=== PATIENT | female | born 1965 | race Caucasian/White ===

== ENCOUNTER 2023-02-16 08:05 | Outpatient (OUT) | payer BC, SELFPAY ==
--- NOTE | 2023-02-16 08:14 | MM_ITS ---
Patient Name: MARYANN DORADO MR#: [id number] : 1965 Exam Date: 02/16/2023 Ordering Doctor: DR JEREMY PAYNE RADIOLOGY REPORT PROCEDURE: MM TOMOSYNTHESIS SCREENING BI COMPARISON: None. INDICATIONS: Screening Calculator Name NCI Breast Cancer Risk Assessment Tool 5 Year Breast Cancer Risk 1.10% Lifetime Breast Cancer Risk 6.30% Personal Breast Cancer No Personal Ovarian Cancer No Treatments None Family Cancers None LOCATION: [facility] BREAST COMPOSITION: Scattered areas fibroglandular density. FINDINGS: DIAGNOSTIC CATEGORY 1--NEGATIVE. RIGHT BREAST: No significant suspicious finding. LEFT BREAST: No significant suspicious finding. RECOMMENDATIONS: ROUTINE MAMMOGRAM AND CLINICAL EVALUATION IN 12 MONTHS. PLEASE NOTE: A NORMAL MAMMOGRAM DOES NOT EXCLUDE THE POSSIBILITY OF BREAST CANCER. A CLINICALLY SUSPICIOUS PALPABLE LUMP SHOULD BE BIOPSIED. Dictated by: Isaias Ponce M.D. on 02/16/2023 at 14:21 Approved by: Isaias Ponce M.D. on 02/16/2023 at 14:23
== END 2023-02-16 08:06 | disposition home or self-care (01) ==
LOC: MAMMO 08:05
PROVIDERS: PCP Nurse Practitioner Family; Visit Provider Nurse Practitioner Family
DX: Z12.31 Encounter for screening mammogram for malignant neoplasm of breast (principal)
CPT/HCPCS: 77063; 77067

== ENCOUNTER 2023-07-04 11:45 | Emergency (ER) | payer BC, SELFPAY ==
[2023-07-04] VITALS (8 sets, daily range): BP systolic 158–213; BP diastolic 104–134; PULSE 68–69; O2SAT 98–100; BMI 37.8
--- NOTE | 2023-07-04 12:33 | ECG_ITS ---
[facility] Test Date: 2023-07-04 Pat Name: MARYANN DORADO Department: Room: - Gender: Female Guide Excursion: : 1965 Requested By: [id number] Order Number: [id number] Reading MD: ZARINA URBAN Measurements Intervals [place] Rate: 69 P: 54 CO: 164 QRS: -23 QRSD: 78 T: -8 QT: 372 QTc: 391 Interpretive Statements 1100 Sinus rhythm 7202 Moderate left axis deviation Nonspecific ST/T wave changes 9110 normal ECG No previous ECG available for comparison Electronically Signed On 07-04-2023 22:59:52 EDT by ZARINA URBAN
[2023-07-04 12:44] LABS: Basophils Percent Auto 0.3 % (0.2-2.0); Eosinophils Absolute Auto 0.1 10^3/uL (0.0-0.7); Eosinophils Percent Auto 1.1 % (0.9-7.0); Hematocrit 42.5 % (36.0-48.0); Hemoglobin 13.9 g/dL (12.0-16.0); Immature Granulocytes Abs Auto 0.02 10^3/uL (0.00-0.03); Immature Granulocytes Pct Auto 0.3 % (0.0-0.5); Lymphocytes Absolute Auto 1.6 10^3/uL (1.2-3.8); Lymphocytes Percent Auto 21.3 % (20.5-60.0); Mean Corpuscular HGB Conc 32.7 g/dL (29.9-35.2); Mean Corpuscular Hemoglobin 29.7 pg (26.7-34.0); Mean Corpuscular Volume 90.8 fL (81.0-99.0); Mean Platelet Volume 9.1 fL (9.5-13.5); Monocytes Absolute Auto 0.5 10^3/uL (0.3-0.8); Monocytes Percent Auto 6.2 % (1.7-12.0); Neutrophils Absolute Auto 5.1 10^3/uL (1.4-6.5); Neutrophils Percent Auto 70.8 % (43.0-75.0); Platelet Count 273 10^3/uL (150-450); Red Blood Count 4.68 10^6/uL (4.20-5.40); Red Cell Distribution Width 12.5 % (11.0-15.0); White Blood Count 7.3 10^3/uL (4.0-11.0)
[2023-07-04 12:58] LABS: Alanine Aminotransferase 21 U/L (14-59); Albumin Level 3.9 g/dL (3.4-5.0); Alkaline Phosphatase 77 U/L (46-116); Anion Gap 14.3; Aspartate Amino Transferase 15 U/L (15-37); BUN Creatinine Ratio 28.9; Bilirubin Total 1.3 mg/dL (0.2-1.0); Carbon Dioxide 27.9 mmol/L (21.0-32.0); Chloride 103 mmol/L (98-107); Estimated GFR (African America >60 (>=60); Estimated GFR (Non-African Ame >60 (>=60); Globulin 3.8 g/dL; Glucose 111 mg/dL (74-106); Potassium 4.2 mmol/L (3.5-5.1); Sodium 141 mmol/L (136-145); Total Protein 7.7 g/dL (6.4-8.2)
[2023-07-04] MEDS: CLONIDINE HCL 0.1 MG TABLET 0.100000000000000006 MG PO (13:00)
[2023-07-04 13:01] LABS: Ethanol <3 mg/dL; Troponin I High Sensitivity 23.1 pg/mL (4.0-51.3)
[2023-07-04 13:02] LABS: Acetaminophen <2.0 ug/mL (10.0-30.0); Salicylate <2.8 mg/dL (<=19.9)
[2023-07-04 13:09] LABS: Bilirubin Urine NEGATIVE (NEGATIVE); Blood Urine SMALL (NEGATIVE); Clarity Urine CLEAR (CLEAR); Color Urine LT. YELLOW (YELLOW); Glucose Urine UA NEGATIVE (NEGATIVE); Ketones Urine NEGATIVE (NEGATIVE); Leukocyte Esterase Urine NEGATIVE (NEGATIVE); Nitrite Urine POSITIVE (NEGATIVE); Protein Urine NEGATIVE (NEG/TRACE); Specific Gravity Urine 1.015 (1.005-1.025); Urobilinogen Urine 0.2 EU/dL (0.2-1.0)
[2023-07-04 13:14] LABS: Urine Microscopic Indicated YES
[2023-07-04 13:24] LABS: Bacteria Urine SMALL #/HPF (NONE SEEN); Cast Seen? NONE SEEN #/LPF (NONE SEEN); Crystals Seen? None Seen #/HPF (None Seen); Mucus Urine TRACE (NONE SEEN); Squamous Epithelial Cell Urine RARE #/LPF (NONE/RARE); Urine Culture Indicated YES; WBC Urine 0-2 #/HPF (NONE SEEN)
[2023-07-04 13:25] LABS: Amphetamine Screen Urine NEGATIVE (NEGATIVE); Barbiturates Screen Urine NEGATIVE (NEGATIVE); Benzodiazepines Screen Urine NEGATIVE (NEGATIVE); Buprenorphine Screen Urine NEGATIVE (NEGATIVE); Cannabinoid Screen Urine NEGATIVE (NEGATIVE); Cocaine Screen Urine NEGATIVE (NEGATIVE); Methadone Screen Urine NEGATIVE (NEGATIVE); Methamphetamines Screen Urine NEGATIVE (NEGATIVE); Opiate Screen Urine NEGATIVE (NEGATIVE); Oxycodone Screen Urine NEGATIVE (NEGATIVE); Phencyclidine Screen Urine NEGATIVE (NEGATIVE); Tricyclic Antidepressant Urine NEGATIVE (NEGATIVE)
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
== END 2023-07-04 16:57 | disposition home or self-care (01) ==
PROVIDERS: Emergency Provider Emergency Medicine; PCP Nurse Practitioner Family
DX: I16.0 Hypertensive urgency (principal); F43.9 Reaction to severe stress, unspecified
CPT/HCPCS: 36415; 80053; 80179; 80307; 80320; 80329; 81001; 84484; 85025; 87086; 87150; 87186; 93005; 99285

== ENCOUNTER 2024-05-17 03:04 | Emergency (ER) | payer SELFPAY ==
[2024-05-17 03:12] VITALS: BP 154/90; PULSE 89; TEMP 36.9; O2SAT 99; BMI 31.3
--- OUTSIDE RECORDS SUMMARY | 2024-05-17 03:12 | XMS_ITS | CCD ---
Author Organization [facility] Care Team Providers Care Analyzer Sales Name Role Phone HOUSE, DR MATSON Consulting Unavailable HOUSE, DR MATSON Attending Unavailable HOUSE, DR MATSON Admitting Unavailable KyraKulwinder ruiz Attending Unavailab le KyraKulwinder betts Admitting Unavailab le NON STAFF Primary Care Unavailable HOUSE, HUYEN Gustafson Primary Care Unavailable HOUSE, DO HUYEN Gustafson Attending Unavailable HOUSE, DO HUYEN Gustafson Admitting Unavailable HOUSE, HUYEN Gustafson Primary Care Unavailable HOUSE, DO HUYEN Gustafson Attending Unavailable HOUSE, DO HUYEN Gustafson Admitting Unavailable HOUSE, HUYEN Gustafson Primary Care Unavailable HOUSE, DO HUYEN Gustafson Attending Unavailable Allergies Allergy Classification Reported Allergen(s) Allergy Type Date of Onset Reaction(s) Facility (1 source) Penicillin; Translations: [penicillin] Drug Allergy [facility] Repository Problems Problem Classification Problem Date Documented Da te Episodic/Chronic Essential hypertension (4 sources) Essential (primary) hypertension; Translations: [ESSENTIAL PRIMARY HYPERTENSION] Onset: 04-02-2022 Chronic Results Test Name Value Interpretation Reference Range Facil ity Coding Summaryon 05-02-2024 [facility] ZpznqnkmGKs0wHa+PGh lYWQ+LT1VWKXuL00gtC AlaB8oK0KMTCtFHpimC IKHLWkZDyKqdtHhFZ3v aXNjZXJu IC8+VZ6rKLOzLsoomBA vs4E9yTU8B86vix3rCA ujoCJ4KFMiToBgaxyfs 5amtEq1CNvxIxwjVtWc QKWomG98YSD3nM57Ba6 1gCBfrNYre5kajYk9Rq DvAQQzGDF4rWynYQsyu 1LdAOOlY86vxHGvx3P9 IGNvbGxhcHNlOyBlbXB 1uR8qHWhnlwtme1wigj pxHlz4ia13eNFrw6X3p HA9I6ShxyX2AJNrtMEs VyynkUFZyK2cuqgmg5k hazpuXyNiOFOaGWl4MJ l6DVVhyOqdXuCnQT23G EC0VNOgkvMdZ7UrSKZu aYlzJjG2h7T3Mj0OA3G AAllrA3ZPYWHHYGdcwM Q+LT21nh79R6ObSwpgW tr8NBKlCAF1rPK0vZ2e OESyCGgiy6V0fNA7F1A mluIizx2sm3lrMUEcBW ljV44ddHEqu6S5ZWSkv VB2PUUwuWejFdZvaX40 Oyc+BNFicGfzd8SsVvx yn0rky2cndUc8ZqzdLE PtjcZieVdyZLR5g0PoU x4nGWJinVM9hTA2yY2j NaVaEhL4VXssW609GfX xyHJaEgjiN15xU6StgX A+KJKqNij8IWGncMktE G4fQ8QaPJNsxlesjSEj yTnkZF2oEUMdzntlNRD eeP6qFIYsX7n4LtBhNi E6TWtdW4JfAHVqranmH e56jN1bRrKzBaS4WMqd F4EnrjW6KUNgeMGvVDy rXUZ5X06bi0D8DTWhAF WjKPI1yRI1xC6lzTvfi jogbGVmdDsgdmVydGlj HYfyWEukK663DJKbwAw nPkNvZGluZyBEYXRlOi AgMDIvMjYvMjAyNTwvd GQ+TPWvHYP6oPqhUXQq cONwOPytZj5ojBfxkNj rTT2wSEXvgcsoMJKudI 9pHYDdnVVncHqeHC5hG AYwuktya256HcNkCKM5 OLHojLJeL4UpqR4iIqE lQVMhZJXaR8KpqWRhRL feH497HHfhUtX0CXVkw mTnV5NtYAIcyInkDhR7 c2D0Go2Wa0JlhiunH6B pbZJeXgYhKtdoHKt2A0 RkPjwvdHI+PA33ZBMdP V38SNi4CQX3jZroHCoe MESmV4BswC2cAoChXUS kZGRkOyc+PHRhYmxlIH dpZHRoPScxMDAlJyBzd ArpWK3nBi6aQZAjYKVm gSlkvHVoWeKnm5vxFMN nEFimNX2qyTtiM8GamO A5NJKyu0x5Lj13F27rA 3JvdXA+SHFxiSH0nIW1 xL3sFoRvDiM8AQfiZ52 2IhDigWUrMwuec8ijm8 nltNz0AoW7HIHicgYwp EaoNXB2v1FoVs50H60g IHdpZHRoPSIxNSUiIHZ yhZuhcf6myZ8rFt3+PG XnbML1rCE5kT5xFqByO eS0EAqbV006BjEpuTZo Mcqvg8frv5ibaPk3SrF iWRJxuuYiqTamCBA0m3 FjIn32Y2FsbGdkn9TvE xy6yr91nWGjt4W1mXH2 M7GeLYFeyzsarRCopIl pKI0gBIJyzovjNBRwxS 0uCLXpZ4f1CkIqGrR4H BlwI8PckuF3ESNatFSd VLDenRJJjD8affzvm6s ylfxeNtIrLLAgKQy0XQ x1LSXcjHgcAaSkPCF3V kE5GTA0zAChoR3rcDqz jpuzmY7xWvy+RMZ6nYE bfGXBCW3dQweazNZ+PH EuJCL2qGufMWnkKTCjr K8cRXAuT1f7GwRnFdT3 TWpfZ7DabsO4NHApcCQ oEVAyoWTNeV8avkzhs0 wjatsnPfCzHNZkZEj5F Vj4MXHulCbrDpSmAAM6 MzV9JID8gFCpkE3dePn utkrwrE9rLfh+QmlydG noWJG2BIl3P1AtTlc9V JCtnWfcCO7onYDwXYrv Aq5ayDzbeWprKF4ePFP lrnjaz875QvRct1yqOE YzmXYdNGqzCUN4D78cg 8O4VOAiXRZtPRH1kVW7 uI1axLxfhfepjWQcrPu gdmVydGljYWwtYWxpZ2 08NFAtjFcjTgDbKSu7F 1BeWuk0KWVfvUyzCR7p eIGcCUlvPz4jlZigeAl wGF3dUMSobbacz482Ia Igy4prZPRkbCVvEXqdE VA4I83te3F5DINsFEUn VFO9mRL6cM2qrUrybqn gbGVmdDsgdmVydGljYW jbHWjuU516ZMFnqYytM jWfvYk9V1OlUmr2UCOo jXsdGO7kyHVvRMisRn0 aaWleoWyqXG1wBPRiws bml711DiEra7fjRURfx CCgJUjtDOR7Z27mk1Y4 OFZwXBAxKQU7sSL6wH5 hbGlnbjogbGVmdDsgdm MfnDvuDTpaGAyxZ152A HRvcDsnPlBhdGllbnQg CJtbLNc0Q5DdBcvyaLJ +LS43GROqER23qETxwI Xns1gdvMb0FxMnZBEdX DS9gBwhBAcge2PyGSBz G31dwVIbq6C2ZIUgoDc aiALtFwJuoIL2wV2mRX affcuem8iqojnzKsnex 0rpvp04cW75K49nWMwe ZHRoPSIzMCUiIHZhbGl udi1stT8lVg2+PGNvbC D0lKO4zN1jPUXzSsU9F XrmP885WeTvwFAjUplc p2utv2uomNa3EnM8FQF szkUnsKojQMM1f6QsZe 22V31iMFtkTGDcUKZyX UCqWGWskSedsl1aaY8w Ii8+FLEtpQJ6bRW7uE6 iScJcTwF9MQldX510Vx AfeNHlTvmoA51aW8Wrz XA+CQEiPxq3OEAgfXle SY0wbIClZMplWz2zZDD 2NiGgWfPgMUqjV6CjYB EgbfowoeklsCS3RMMjB PTzqV78Rz9loCuvIJWk yCXOlP3kwhwth4xkfdg eKuPfVCWxIZc3UZq4MU WfuZxcFqLbQTM7MrK8M EJ5tUZquM3bxQxbeuoj eD8oZ6KqGPAnybgkHq5 8bI7hWfWyYaS8VOnlYh c+OT5YT9zsWYUNHl5EI RHWBN7ZWIrtlWP+PHRk NEB4cTajXHyvWIPyrM8 pHHNrQ4o8ClCnFvT6LA nrI1OjBSQjaffoWn69j P9oDoHcXzE0QXpoH3Ot mzM3IFIqiDQbTLqeTWU 1Y65ny9R3ALLqZIOuHL Y4wVG2nX2dnHygdwcqv GVmdDsgdmVydGljYWwt KPqzO617CFHwuVckOiZ 4OdA2SqJ0LlG8O1SpHh w4LAEkkCpjFY2qnKSjF RkcFn9iqSyqzFngYE7n DXDkwptcPVZusY3dFLB miJPwuRzbJF6kNXCsoi fng248WwQcYBD7UXKdy NVdR0ZcmQ0mKuRuTDKo ZJKqF1ZajJRgZFgaB54 1DDjrHtO2KUUneuGyV7 QeYMZdvJybEeJ8b3F6O e34QWTNXXRbwsgrnLH+ RTSoHKU1qUofNCzjPPM suM7sAQAbM9g8UcKbQp O9JCvuT1KmWXOhjhjtZ y02sN9sSjAiXcU0TJqm A8NachW1KOAqyKUyBGv fBII0U59gx2R7OHPvAC SsDRB3sIQ7vA4viDppl jogbGVmdDsgdmVydGlj JHfoDPcoR723TUHhkDp nPkZFTUFMRTwvdGQ+PH NmHWF0uPhgOVsvGUOef S0kUFJnX8w9YsDmKdF0 QScaB1JjLTSyqqqvDc7 2wG1zBfWvVgC6VNktN3 XbtdP9VTMirYUvZKooO AU7R08bw3Q8RKXuQTZe UIW8fEW2nT7bfNmllsd gbGVmdDsgdmVydGljYW ufWBgfY164TFBncAdmN w3COR36FZ89J3FuCwhr dGFibGU+PHRhYmxlIHd pZHRoPScxMDAlJyBzdH qhXJ2tIb5mZSWbZZTkz QkriHJuHrBot2cjIPOc HOxpDG1hoDuzZ4FapPR 8STCkw7h6Rj41T60lT8 JvdXA+ULBnhLO4hMZ1n L3oQdKbZyV0BPajS694 UnDopXRxNiiem6gvv1t xbXb2WjMvYVHwitAcoY dzGFD3h9YdJy30A04yX HdpZHRoPSIyMCUiIHZh tHinga5vfM5sIz3+PGN twWD1nFP9xL3dBcZnJr X8ZVsbI922YoXukEJcR tdkH45wZ1VblTZ+PHRy Ioe9GNZyzGisAY8ckRE uFKeyLf1sYPP8SzDjQh LaURkjC3ZvTCRqorkva dkzdNW5XTIuKVPkbH99 Ty0wvBxqCj9aZKVoRJC 6IYPnuLPgT3MebN1rWw ZxHSHzZDCaT0JlkIBeM AgbZ015LZjqJgU5HTYo vmIbR6XaUNGesFjoXrM 2a6P3Iy4IoCkquYKdUQ 5wAuIrSKn7N0IrOvg8Z FKfwZtlIQ0kaNJtSDqf Sw0wxFbeiXhjCZ7zCFZ yahang564KoLuf4udCP SmnKPiSIxuWNY5R77rh 9F0QTCpWRIaAYZ8lNN5 vG8paOpylycidPGevPr gdmVydGljYWwtYWxpZ2 31CNPogCfrWdTORra5T 5UpHsr7JZHipQdrUD5l eNQqKObhXw6zgLzrxOv xGN2xQBUfcxxln708Md Mfu6heHBQlxREoMGowB FW3I28ea4H7CRGgMBXv UWP9vBI5wG0kgWiitho gbGVmdDsgdmVydGljYW spXIcdQ501VVFttFguO h3GEpr3V2JaQmm8RYVf xPnuSU9aaCOePGgwAl6 ejQkryQraEC2eGSEicw rlx192CaKeh6qfNETjw CLpQBfcPED5I36ul8V6 NQTfPZMkWND4gVY2sO6 hbGlnbjogbGVmdDsgdm PwqFdoXSbzRSgtL532D HRvcDsnPlBheWVyOjwv dGQ+FV58ib92N4PnZeg cEtf2ILIqLZU7lTH6wI 5lVHTxTCkxr6L4zEY7V 9HqagUuzn5ze1xlNGRj ZTo (more content not included)... Normal [facility] Reminder Messageson 05-01-19 Reminder Messages -- From: HUYEN OATES DO To: [facility] Clinical Pool ([facility]); Sent: 04/30/2024 07:53:04 EST ! Show up: 04/30/2024 07:53:04 EST Subject: Results Follow Up Actions: Call the patient with result(s) Due Date/Time: 05/01/2024 07:52:00 EST Reminder Comments: looks okay Results: Date Result Name Ind Value Ref Range 04/26/2024 11:43 UA Color Yellow 04/26/2024 11:43 UA Clarity CLEAR (CLEAR - ) 04/26/2024 11:43 UA Glucose NEGATIVE 04/26/2024 11:43 UA Ketones NEGATIVE 04/26/2024 11:43 UA Spec Grav 1.010 (1.001 - 1.035) 04/26/2024 11:43 UA Blood (A) TRACE (NEGATIVE - ) 04/26/2024 11:43 UA pH 6.0 (5 - 8) 04/26/2024 11:43 UA Protein NEGATIVE (NEGATIVE - ) 04/26/2024 11:43 UA Urobilinogen 0.2 mg/dL (0.2 - 1.0) 04/26/2024 11:43 UA Nitrite NEGATIVE (NEGATIVE - ) 04/26/2024 11:43 UA Leuk Est NEGATIVE (NEGATIVE - ) 04/26/2024 11:43 UA Bilirubin NEGATIVE 04/26/2024 11:43 Urine Source Clean Catch 04/26/2024 11:43 Micro? Indicated 04/26/2024 11:43 Culture? Not Indicated 04/26/2024 11:43 UA WBC 0-2 04/26/2024 11:43 UA RBC 5-10 04/26/2024 11:43 UA Squam Epi Rare 04/26/2024 11:43 UA Bacteria Trace lvm with results [facility] UA Zxbyw2mm 04-26-2024 UA Bacteria Trace [facility] Comment on above: Order Comment: Urina lysis Microscopic order added on by [employer] Expert Rules system. Performed By: #### 1 [id number], [id number], [id number], [id number] #### [facility] (DEFAULT) [address] [place] [address] UA RBC 5-10 Normal [facility] Comment on above: Order Comment: Urina lysis Microscopic order added on by [employer] Expert Rules system. Performed By: #### 1 [id number], [id number], [id number], [id number] #### [facility] (DEFAULT) [address] [place] [address] UA Squam Epi Rare [facility] Comment on above: Order Comment: Urina lysis Microscopic order added on by [employer] Expert Rules system. Performed By: #### 1 [id number], [id number], [id number], [id number] #### [facility] (DEFAULT) [address] [place] [address] UA WBC 0-2 [facility] Comment on above: Order Comment: Urina lysis Microscopic order added on by [employer] Rules system. Performed By: #### 1 [id number], [id number], [id number], [id number], [id number] #### [facility] (DEFAULT) [address] [place] [address] UA w Culture if Ind Standard on 04-26-2024 Breakpoint UA [facility] Comment on above: Performed By: #### 1 [id number], [id number], [id number], [id number], [id number] #### [facility] (DEFAULT) [address] [place] [address] Color (U) Yellow [facility] Comment on above: Performed By: #### 1 [id number], [id number], [id number], [id number], [id number] #### [facility] (DEFAULT) [address] [place] [address] Culture? Not Indicated Invalid Interpretation Code [facility] Comment on above: Result Comment: Resu lt created by rule GL_MAGR_ADD_UA_CULT Result created by rule GL_MAGR_ADD_UA_CULT Performed By: #### 1 [id number], [id number], [id number], [id number], [id number] #### [facility] (DEFAULT) [address] [place] [address] Glucose (U) [Mass/Vol] Negative [facility] Comment on above: Performed By: #### 1 [id number], [id number], [id number], [id number], [id number] #### [facility] (DEFAULT) [address] [place] [address] Ketones Ql (U) Negative [facility] Comment on above: Performed By: #### 1 [id number], [id number], [id number], [id number], [id number] #### [facility] (DEFAULT) [address] [place] [address] Micro? Indicated Invalid Interpretation Code [facility] Comment on above: Result Comment: Resu lt created by rule GL_MAGR_ADD_UA_MICRO Performed By: #### 1 [id number], [id number], [id number], [id number], [id number] #### [facility] (DEFAULT) [address] [place] [address] UA Bilirubin Negative Normal [facility] Comment on above: Performed By: #### 1 [id number], [id number], [id number], [id number], [id number] #### [facility] (DEFAULT) [address] [place] [address] 269[address] UA Blood TRACE Abnormal NEGATIVE [facility] Comment on above: Performed By: #### 1 [id number], [id number], [id number], [id number], [id number] #### [facility] (DEFAULT) [address] [place] [address] UA Clarity CLEAR Normal CLEAR [facility] Comment on above: Performed By: #### 1 [id number], [id number], [id number], [id number], [id number] #### [facility] (DEFAULT) [address] [place] [address]22 UA Leuk Est Negative Normal NEGATIVE [facility] Comment on above: Performed By: #### 1 [id number], [id number], 98040893, [id number], 9905864 #### [facility] (DEFAULT) [address] [place] [address] UA Nitrite Negative Normal NEGATIVE [facility] Comment on above: Performed By: #### 1 [id number], [id number], 35454210, 47509931, 7573509 #### [facility] (DEFAULT) [address] [place] [address]006 UA pH 6.0 Normal 5-8 [facility] Comment on above: Performed By: #### 1 [id number], [id number], [id number], 92686676, [id number] #### [facility] (DEFAULT) [address] [place] [address] UA Protein Negative Normal NEGATIVE [facility] Comment on above: Performed By: #### 1 [id number], [id number], 06443079, 45648264, 0132512 #### [facility] (DEFAULT) [address] [place] [address]69 UA Spec Grav 1.010 Normal 1.001-1.035 [facility] Comment on above: Performed By: #### 1 [id number], [id number], 05056191, 38531911, 9114611 #### [facility] (DEFAULT) [address] [place] [address] 97643 UA Urobilinogen 0.2 mg/dL Normal 0.2-1.0 [facility] Comment on above: Performed By: #### 1 [id number], [id number], 35111259, 78914980, 6093042 #### [facility] (DEFAULT) [address] [place] [address] 90267 Urine Source Clean Catch Normal [facility] Comment on above: Performed By: #### 1 [id number], [id number], [id number], [id number], [id number] #### [facility] (DEFAULT) [address] [place] [address] Coding Summaryon 04-19-2024 Coding [facility] XqnemhqpOIq1xWl+PGh lYWQ+CJ5CJCYnV31vaT XccL1sL9BGZWvJViuuU RSZXCnEKtXacxTnBX4x aXNjZXJu IC8+ZR2gDRUoOoxfvKK ov0C4bOL4Z29aer0mIV hduSQ0ZCWeChCqfzqjj 4drbLe7GJvbSueyQuUf AYIygF36FHP8nM96Fp7 7cQAldMKvz7ugoQw9Cs BqUFAuVHO5lDymEUrim 0QoAZFpV71msNEjy5C8 IGNvbGxhcHNlOyBlbXB 4tS9iGHlgxyqji1ovtt eyGsk5pu29oSQik3Z0s WF2G0AlkqS0FNZanLRt CmbabOXPkH0zcoyjc8a wpmriSgPuTXSaBIw3JJ k6DGYpdZtpDpBdNZ82I RY3RZLmcuZeS6LfCOUk aMpdJcJ7d8Z8Hr0LW1L JKhdoS8JJAMAFEEonhH Q+QT09sk50A1AsJesgD on3HOAaTWI0jJC1eY1y UINiAMlbq0Y3gWN0T7D pgrUzvy2lp6nhDWOdCP ghU91vbWJzy7E7WCDyk HP7QVVvhYehTwSkiD08 Oyc+DYWenDdgh3PaHdh yr4xjp4etzDr7CcqfPO IaomRcxVwnJEG2r1YeK q3sGGVilIZ2oGX2wL3s NkLrRlM6XFrlQ736SvP mcCMnVnrfS88uU9GdqY A+IHVgDmb2NPRvjXqhS F8cI7JsRSHlguiqhBFr sAfhHG8zNRVmkgreHXE olL3kYHUpV3k5NxEjSf F2CGvuB7XsCQGiefarH d51uC0vIrXoAhU6VHtd L7CkulK7ZALpyOWrFIk hXVL6E11xp6J8SZAdHN OuROM7mPH1kS7tgGsgm jogbGVmdDsgdmVydGlj LUsqSApiX743CBYrzMu nPkNvZGluZyBEYXRlOi AgMDIvMTMvMjAyNTwvd GQ+NVFlXUI3vVqcCWNo hFOkUIbbVp1xpYyocZz kEO4bCZOsjtopEYXdkA 4mCJMayCZriEkdQO6lA DRerrtxw878IhOxMSU1 ZAXubQBfP3WplR1tZlA cIFCzFSCgZ8PzuXLcDC tlH819WMxpLkM8GPWjl nLnI4HzSEVobIduLtW5 a5W4Gx4Et1LrnbwwL7P ucKFgXdUvUwbpYZn9N4 RkPjwvdHI+WG32XXVcN P23DCm3IDA5bTxtFGzz WEGyS4KezD9dYtBqQXH kZGRkOyc+PHRhYmxlIH dpZHRoPScxMDAlJyBzd ZypAV8aOy9pSCYgZEAr aEbywRTwJzIpz4pqNUI tGNakPA7bzMprR7ZqlD Z4ODMhq6o8Vg77G57kG 3JvdXA+TZQwxGP3iIQ9 uS1fGyWiWmY7PZfgR84 5MhOttERfCdkbn6wde1 gcdKd8SeX4IFPnfwMmc XeaNTC7o2FqTk62T40w IHdpZHRoPSIxNSUiIHZ lmJbxew1ewT2vQt6+PG TvdSU1pOB7nS9vGtCrL mF6FLwmA492LmNbeDNn Qsliz4qtr4cayJr2KjV fQBHqfzXfkNuoTFZ0l4 JdIr01B7UktUlya8PfM jb9by78aAYiy7C1bAM6 P2QeAERyhpckpMIopLj sEG4hVKXzglvfBWHmoA 4xCNPpZ7z8NtSxIbU9Q XalA1BzchE6REIusDBq QWOixNSJdE7iwdinq7d msjptRpWrRCDjYFx8HP q1BUSmrJapAmKgQUG1J tY5MXC9hWIjyD7ykHyu jyuqkL0pJps+BOO4vFJ bjGSGIG7aIaldqJE+PH EyJQI2kHqgHMswCYLxo X8eUPGaP8d9LnIlItU8 HZxsN2VfggD7AZXlbRN oFSAgcTUGsV8apkhqp1 xcygzrPvYmASAyGSz2Q Jp6NSNflHjaQxDkEXH1 ChU2ODS1bXTenF6ykKr zgsyafH0dUzl+QmlydG gqNSE0VFx7N0EtDii9Q BEyoFwnQB2msGVeYEgb Cf2msIxagFanVJ1uJUO avhcyz086QpYnf3yaKM YeqTNtWDazBKQ7D13nt 2U3HEPyRHMxXFZ7yQR8 xP2skNixyztgiRRoyZl gdmVydGljYWwtYWxpZ2 99MPVyhCwzClGjBMe5L 1CeIvg3AFJutOkeUP4c dLShJUtpDe7msRxxvOr iZR8kAWKwvyngm943Zd Ukg9phMFDvrQMxGPnbI AE4Z75je6T0HKGvPIGf FXZ5lTK7eH1ypVlhies gbGVmdDsgdmVydGljYW tjPDhxL191UPTecIdjP uCuaWu8Q3UzGwc7NGHl hXqwTS5yeQQcXVdoPk7 bnOvbbHlsEC4hGHKsxt tzg931MhTpz3mbMEInt TOlXTnjJCX0N37ir5T0 CBHoWPBjIOR8pEZ7jP9 hbGlnbjogbGVmdDsgdm ErpPntBFwwGWuiM702C HRvcDsnPlBhdGllbnQg NTqgWPm5O2AqPniilIA +BL49PTYwFR86qEAriO Srm6eibFd5BgErGPGtT WW3rMgsNOtix0GlBVEm B31iyFWlm3H9JEEmdYw wzVOeGjMckZH4dV0tJZ nfmpnvi1uxzrxxEwybj 0sdff62tE80U98fPJxk ZHRoPSIzMCUiIHZhbGl pdm0akJ0fGj2+PGNvbC Y9vDF4oC2yEFCdAeK1U HekT061TiGjrKYtHfab w6vqm8scgIb8ZaC1VZZ wjfHfnWgdWST3g2HoZw 40G02eTJvmFCLjSOWrR KIfFDJngYbkue5cdA9v Ii8+YLMqzCD5nNQ4bT4 mNiMxNiC3XVapQ939Uo MrrVMcXxxiE54kO5Das XA+KAOgQvn5TTJppZwr GU6lrOLiMEgyZe5rBGK 1YlMqClHuPMziS4GbHE DxoclslyeteHE3FFYnO DPjvK75Ek0fbHxxMKYp kURHrR4fnixkd7jpaan bVdQnRJZgDWz9QDf4BB YcfTwrWjIoXOP3HbX9E YB3oLFbpD8ldBwwycea aT2xP6JxEQYkahmgRk5 2vM4vSaQlShJ6QQaoGg c+FL7NK4gpHYVGVl4YI QRZIU2FACszbZW+PHRk ZZF3zCmoZAcfDOOirX7 xKRFfV0m0SmNnIiV1AO voN4ZhFKKvyzdtEj88b G8zLlPcBrH3VAlbG8Ku wyQ6EWRajTHtSCogORV 6U31df0J2DLSwFNWfWU B4jKL6gI4dfEiqgbudf GVmdDsgdmVydGljYWwt GRfrI279USBiyJvbSoF 3WhM2YlK4CyC5O9EfKq d2ICNshCskWF5fdPZfW CzxBw0enVfsyQljXB3d VHRljujqQINagI0fCWU joXUcrCvmQT3oFOEvtu bfl631IkRnIKV8BDZrd AAhG4VybV8gAhPrYACh KJDzX0TjuBVtNUsxM54 2KGkeZmV6BSRnjeYzQ5 ZxUVVhnCnbQdA6y8I8P q78NIJRBBYghyuyvDE+ KBUbFHZ0vUafPYywHSB ldQ1rJIKpW8h1OvKeHx I6BLqrI5LxUYNogtcuR f20mI0zEyWrBsL8UNcr N2YufsM6NPMfkBUzRDv xNJR6C96yn1E4EBMbWV EeBTF7nVR9iM6kdJrvc jogbGVmdDsgdmVydGlj JOpmFWkwR601VOGomAo nPkZFTUFMRTwvdGQ+PH HhHDX9nKdxCOizJERcu N4nLGSyB7d5LhLaDsV1 YKuhL8HlTVRmcfnkUb7 8oI7cJvWwAeP0FUpwV1 NqmpN3PVRbnFCiNCnbM VK4P56um1A9ZFDhKLQg GFJ9qZO8rE6pqJanuqx gbGVmdDsgdmVydGljYW cwTIubD283QTJvsHciH p8CYF33HG89D8ZdVwhm dGFibGU+PHRhYmxlIHd pZHRoPScxMDAlJyBzdH agOK3nMq3yLOAbKGPlt DlieHBsFxEly5fqCMCp FIadAQ4avVwpW5BomLQ 3GWXeo0i7Pv29G98nE5 JvdXA+QSHwbQD1rDI8s G3cEdHxPfH6TXbbP993 OzPzkOJfRkfrx5zmb4b bfAn1LpXcVAMpdsRkkK goUIL1x6OxBl82J45vK HdpZHRoPSIyMCUiIHZh bQyfkd3ijG3jYe5+PGN erUJ2fEG2tW5mYjEoYt M2PNkcX243KlQlxMGzL fslZ50xJ6VtqCZ+PHRy Wrn0NUIxzNmtUN5lbOX mZFopJt1oFPE0BnSdRa ReYJcmB6BxGTIuenuxh impjWB8UIArUACteU44 Ih9bpLhzCu0uERIvHRM 4RAHaaIClS9NimZ9pBx IfXFSlQMDsQ4FhxYTzX XooI592QDukLfJ2CBRc mvEzY2SePUPdwBiiXeD 3m3X5Og5YiRqfdNLhZI 0xDaCwJZh5R4GoFiz6B HDqsWzhLJ7mfIImSFyi Dc4giJilyXjsMW3nFIR xlxksb366MwBkg0jfLB EvjNRfMDcbIFE5W00tf 3L2MZBbEUTvUNS6eZK8 bA6csWhfgpcxhNTauCe gdmVydGljYWwtYWxpZ2 74FILltAmmVoVUShf0U 8KkMgv9PYEhjZstQQ3e rCOiYLxpSi7nrUrahSa yQP2iYDHqszfvw977Ef Bmv7irRPKsxEBtFUepP SM1I90cm9Q3FQTaVLQx URR2rVU1gB4yxPamqkj gbGVmdDsgdmVydGljYW idHQdtF719BKDobRcyN x5CAtn7G9BvHrm5YHOl uMepHL6ocYVqTGrcNh9 xjXccnZzdGB0mGKRwvq dze126FrRrr0mzVPAqf IZeUEyzGVF2P32gw6G2 VUKyKFJkFBP2zDX4jS2 hbGlnbjogbGVmdDsgdm DmrBahXWngSRfeL489N HRvcDsnPlBheWVyOjwv dGQ+RF63lb73O6YiZat rBln5HCNnJOZ2eEP6oW 5bAMPqOKvmv6C1dOY3Z 4GmzfUnjq8ln7uoHTBq ZTo (more content not included)... [facility] Patient Handouton 04-18-2024 Patient Handout [id number] [facility] Reminder Messageson 04-18-19 25 Reminder Messages -- From: HUYEN OATES DO To: [facility] Clinical Pool ([facility] [email or web address] Sent: 04/18/2024 09:10:43 EST ! Show up: 04/18/2024 09:10:43 EST Subject: Results Follow Up Actions: Call the patient with result(s) Due Date/Time: 04/19/2024 09:08:00 EST Reminder Comments: lab mostly looks okay. she does have moderate amt of hematuria with no wbcs. rx for macrobid 100mg #14 bid. recheck UA in 10 days. if she still has rbs then urology referral Results: Date Result Name Ind Value Ref Range 04/17/2024 10:39 Sodium Level (L) 135.0 mmol/L (136.0 - 144.0) 04/17/2024 10:39 Potassium Level (L) 3.5 mmol/L (3.6 - 5.1) 04/17/2024 10:39 Chloride Level (L) 98 mmol/L (101 - 111) 04/17/2024 10:39 CO2 27 mmol/L (21 - 32) 04/17/2024 10:39 Anion Gap 13.5 mmol/L (5.0 - 19.0) 04/17/2024 10:39 Glucose Level 108.0 mg/dL (74.0 - 118.0) 04/17/2024 10:39 BUN 16 mg/dL (8 - 26) 04/17/2024 10:39 Creatinine Level 0.81 mg/dL (0.60 - 1.30) 04/17/2024 10:39 BUN/Creat Ratio (H) 19.7 (4.6 - 16.2) 04/17/2024 10:39 eGFR AA >60 mL/min/1.73m2 04/17/2024 10:39 eGFR Non AA >60 mL/min/1.73m2 04/17/2024 10:39 Calcium Level 9.6 mg/dL (8.9 - 10.3) 04/17/2024 10:39 Bili Total (H) 1.5 mg/dL (0.3 - 1.2) 04/17/2024 10:39 Alk Phos 61 IU/L (32 - 91) 04/17/2024 10:39 AST/SGOT 21 IU/L (15 - 41) 04/17/2024 10:39 ALT/SGPT 19.0 IU/L (14.0 - 54.0) 04/17/2024 10:39 Protein Total 7.9 gm/dL (6.5 - 8.1) 04/17/2024 10:39 Albumin Level 4.3 gm/dL (3.5 - 5.0) 04/17/2024 10:39 Globulin 3.6 gm/dL (1.5 - 4.3) 04/17/2024 10:39 A/G Ratio (L) 1.1 (1.4 - 2.6) 04/17/2024 10:39 Osmolality 272 mOsm/L 04/17/2024 10:39 T4 9.29 mcg/dL (6.09 - 12.23) 04/17/2024 10:39 TSH 0.68 mcIU/mL (0.45 - 5.33) 04/17/2024 10:39 WBC 6.8 x103/mcL (3.5 - 10.5) 04/17/2024 10:39 RBC 4.70 x106/mcL (3.70 - 5.30) 04/17/2024 10:39 Hgb 14.7 gm/dL (11.3 - 15.9) 04/17/2024 10:39 Hct (H) 43.1 % (33.7 - 40.4) 04/17/2024 10:39 MCV 92 fL (81 - 100) 04/17/2024 10:39 MCH 31 pg (24 - 34) 04/17/2024 10:39 MCHC 34 gm/dL (26 - 37) 04/17/2024 10:39 RDW 12.9 % (11.5 - 15.0) 04/17/2024 10:39 Platelet 312 x103/mcL (138 - 427) 04/17/2024 10:39 MPV 7.2 fL (6.3 - 10.2) 04/17/2024 10:39 Auto Neut % 69 % (44 - 88) 04/17/2024 10:39 Auto Lymph % 24 % (14 - 48) 04/17/2024 10:39 Auto [place] % 6 % (1 - 12) 04/17/2024 10:39 Auto Eos % (L) 0.8 % (0.9 - 4.0) 04/17/2024 10:39 Auto Baso % 0.7 % (0.2 - 2.0) 04/17/2024 10:39 Neut Abs# 4.7 x103/mcL (1.5 - 9.2) 04/17/2024 10:39 Lymph Abs# 1.6 x103/mcL (1.3 - 2.9) 04/17/2024 10:39 [place] Abs# 0.4 x103/mcL (0.0 - 0.8) 04/17/2024 10:39 Eos Abs# 0.1 x103/mcL (0.0 - 0.4) 04/17/2024 10:39 Baso Abs# 0.0 x103/mcL (0.0 - 0.2) 04/17/2024 10:39 UA Color Yellow 04/17/2024 10:39 UA Clarity CLEAR (CLEAR - ) 04/17/2024 10:39 UA Glucose NEGATIVE 04/17/2024 10:39 UA Ketones NEGATIVE 04/17/2024 10:39 UA Spec Grav 1.010 (1.001 - 1.035) 04/17/2024 10:39 UA Blood (A) MODERATE (NEGATIVE - ) 04/17/2024 10:39 UA pH 6.0 (5 - 8) 04/17/2024 10:39 UA Protein NEGATIVE (NEGATIVE - ) 04/17/2024 10:39 UA Urobilinogen 0.2 mg/dL (0.2 - 1.0) 04/17/2024 10:39 UA Nitrite NEGATIVE (NEGATIVE - ) 04/17/2024 10:39 UA Leuk Est NEGATIVE (NEGATIVE - ) 04/17/2024 10:39 UA Bilirubin NEGATIVE 04/17/2024 10:39 Urine Source Clean Catch 04/17/2024 10:39 Micro? Indicated 04/17/2024 10:39 UA WBC 0-2 04/17/2024 10:39 UA RBC 3-5 04/17/2024 10:39 UA Squam Epi None Seen 04/17/2024 10:39 UA Bacteria Rare 04/17/2024 10:39 UA Mucous 3+ patient notified, rx sent, lab placed Normal [facility] .Auto Diff 1on 04-17-2024 Auto [place] % 6 % Normal 03-18 [facility] Comment on above: Performed By: #### 1 [id number] #### [facility] (DEFAULT) [address] [place] [id number] Baso Abs# 0.0 x10 Normal 0.0-0.2 [facility] Comment on above: Performed By: #### 1 [id number], [id number] #### [facility] (DEFAULT) [address] [place] [address]5435 Basophils/100 WBC (Bld) 0.7 % Normal 0.2-2.0 [facility] Comment on above: Performed By: #### 1 [id number], [id number] #### [facility] (DEFAULT) [address] [place] [address] Eos Abs# 0.1 x10 Normal 0.0-0.4 [facility] Comment on above: Performed By: #### 1 [id number], [id number] #### [facility] (DEFAULT) [address] [place] [address] Eosinophils/100 WBC (Bld) 0.8 % Low 0.9-4.0 [facility] Comment on above: Performed By: #### 1 [id number], [id number], [id number] #### [facility] (DEFAULT) [address] [place] [address] Lymph Abs# 1.6 x10 Normal 1.3-2.9 [facility] Comment on above: Performed By: #### 1 [id number], [id number], [id number] #### [facility] (DEFAULT) [address] [place] [address] 39475 Lymphocytes/100 WBC (Bld) 24 % Normal 14-48 [facility] Comment on above: Performed By: #### 1 [id number], [id number], [id number] #### [facility] (DEFAULT) [address] [place] [id number] [place] Abs# 0.4 x10 Normal 0.0-0.8 [facility] Comment on above: Performed By: #### 1 [id number], [id number], [id number] #### [facility] (DEFAULT) [address] [place] [address] Neut Abs# 4.7 x10 Normal 1.5-9.2 [facility] Comment on above: Performed By: #### 1 [id number], [id number], [id number], [id number], [id number] #### [facility] (DEFAULT) [address] [place] [address] 31823 Neutrophils/100 WBC (Bld) 69 % Normal 44-88 [facility] Comment on above: Performed By: #### 1 [id number], [id number], 83071254, [id number], 7139391 #### [facility] (DEFAULT) [address] [place] [address] 47403 Ambulatory Patient Summaryon 04-17-2024 Ambulatory Patient Summary [address], [facility], [address] Visit Summary For MARYANN DORADO Age: 58 years Sex: FEMALE : 1965 Address: [address] [place] [address], [facility] Home: Work: -- Mobile: -- Primary Care Provider: HUYEN OATES DO Race: White Ethnicity: Not or Language: Zambian Health Plan: 1?SELF PAY Reason for Visit: New Patient - Establish Care fatigue and nausea in morning Needs Labs Prescription Information: If you have been given a prescription for narcotics, seek immediate medical attention if you have any difficulty breathing or any sudden status changes such as confusion and sleepiness. If you or anyone you know is experiencing suicidal thoughts, mental health, alcohol and/or drug addiction problems; contact the [facility] 27/09 Crisis Hotline -Text 4HOPE to 559732. Follow-Up Information Referral Orders CBC w/ Auto Diff Blood, Routine collect, 04/17/24, Lab Collect, Hypertension - Nausea, Order for future visit Comprehensive Metabolic Panel Standard Blood, Routine collect, 04/17/24, Lab Collect, Hypertension - Nausea, Order for future visit T4, Total Blood, Routine collect, 04/17/24, Lab Collect, Hypertension - Nausea, Order for future visit TSH Blood, Routine collect, 04/17/24, Lab Collect, Hypertension - Nausea, Order for future visit UA w Micro, if Ind Standard Urine, Routine collect, 04/17/24, Lab Collect, Hypertension - Nausea, Order for future visit Future Appointments No Future Appointments Scheduled Future Orders CBC w/ Auto Diff Requested Start Date\Time : 04/17/24 09:39:00 T4, Total Requested Start Date\Time : 04/17/24 09:39:00 UA w Micro, if Ind Standard Requested Start Date\Time : 04/17/24 09:43:00 Comprehensive Metabolic Panel Standard Requested Start Date\Time : 04/17/24 09:39:00 TSH Requested Start Date\Time : 04/17/24 09:40:00 Additional Goals and Instructions: Allergies penicillin Vitals and Measurements this Visit (last charted value for your 04/17/2024 visit) Vital Signs This Visit Peripheral Pulse Rate: 66 bpm Systolic Blood Pressure: 142 mmHg Diastolic Blood Pressure: 86 mmHg Cuff Location: Left arm SpO2: 100 % Measurements This Visit Height/Length Measured: 168 cm Height/Length Measured (inches): 66.14 in Weight Measured: 101.15 kg Weight Measured (lbs): 222.997 lb Weight Dosin.150 kg Body Mass Index: 35.84 kg/m2 [place] Body Weight Calculated: 59.626 kg BSA Measured: 2.17 m2 Smoking Status Never tobacco user Procedures Ear Appendectomy Ablation of uterine fibroid using magnetic resonance imaging guidance Elbow Problems and Health Issues Hypertensive disorder Nausea Diagnoses This Visit Hypertension (I10) Nausea (R11.0) Laboratory or Other Results This Visit (last charted value for your 04/17/2024 visit) No Laboratory or Other Results This Visit Medications and Immunizations Administered During This Visit No medication administered during this visit All Known Current Prescriptions and Reported Medications New Prescriptions this Visit hydrochlorothiazide -valsartan 25 mg-320 mg oral tablet (hydrochlorothiazid e-valsartan) Take 1 tab(s) Oral (given by mouth) every day, 5 refills authorized Prescriptions No previous prescriptions documented Home Medications No reported medications documented [facility] CBC w/ Auto Diffon Erythrocyte distribution width (RBC) [Ratio] 12.9 % Normal 11.5-15.0 [facility] Comment on above: Performed By: #### 1 [id number], [id number], 24120144, [id number], 0108543 #### [facility] (DEFAULT) [address] [place] [address] 43844 Hematocrit (Bld) [Volume fraction] 43.1 % High 33.7-40.4 [facility] Comment on above: Performed By: #### 1 [id number], 7739132, 53342884, 68583598, 0057054 #### [facility] (DEFAULT) [address] [place] [address] Hemoglobin (Bld) [Mass/Vol] 14.7 g/dL Normal 11.3-15.9 [facility] Comment on above: Performed By: #### 1 [id number], 6115247, 19468128, 14007614, 5198008 #### [facility] (DEFAULT) [address] [place] [address] 00520 Man Diff? Auto Invalid Interpretation Code [facility] Comment on above: Performed By: #### 1 [id number], 1336774, 98458505, 92753202, 3762059 #### [facility] (DEFAULT) [address] [place] [address] 76845 MCH (RBC) [Entitic mass] 31 pg Normal 24-34 [facility] Comment on above: Performed By: #### 1 [id number], 4945176, 57203970, 20890246, 7614348 #### [facility] (DEFAULT) [address] [place] [address] 83863 MCHC (RBC) [Mass/Vol] 34 g/dL Normal 26-37 [facility] Comment on above: Performed By: #### 1 [id number], 1501278, 38567296, 50826099, 6335033 #### [facility] (DEFAULT) [address] [place] [address] 82130 MCV (RBC) [Entitic vol] 92 fL Normal 81-100 [facility] Comment on above: Performed By: #### 1 [id number], 3351026, 00339113, 51266459, 6415218 #### [facility] (DEFAULT) [address] [place] [address] 98278 Platelet 312 x10 Normal 138-427 [facility] Comment on above: Performed By: #### 1 [id number], 4100624, 02145264, 72639034, 1232888 #### [facility] (DEFAULT) [address] [place] [address] Platelet mean volume (Bld) [Entitic vol] 7.2 fL Normal 6.3-10.2 [facility] Comment on above: Performed By: #### 1 [id number], 9753484, 54186548, 25814374, 5404716 #### [facility] (DEFAULT) [address] [place] [address] RBC 4.70 x10 Normal 3.70-5.30 [facility] Comment on above: Performed By: #### 1 [id number], 9085545, 54219356, 82728627, 7761185 #### [facility] (DEFAULT) [address] [place] [address] 73388 WBC 6.8 x10 Normal 3.5-10.5 [facility] Comment on above: Performed By: #### 1 [id number], 5865588, 44730294, 53436278, 0318386 #### [facility] (DEFAULT) [address] [place] [address] 95778 CMP Standardon 04-17-2024 eGFR Non AA >60 Invalid Interpretation Code [facility] Comment on above: Performed By: #### 1 [id number], 8265854, 99682685, 99218613, 7119265 #### [facility] (DEFAULT) [address] [place] [address] 46664 eGFR AA >60 Invalid Interpretation Code [facility] Comment on above: Performed By: #### 1 [id number], 5942760, 51293423, 70944600, 8448963 #### [facility] (DEFAULT) [address] [place] [address] 21626 Albumin [Mass/Vol] 4.3 g/dL Normal 3.5-5.0 [facility] Comment on above: Performed By: #### 1 [id number], 6908142, 26583822, 07754280, 0720242 #### [facility] (DEFAULT) [address] [place] [address] Albumin/Globulin [Mass ratio] 1.1 {ratio} Low 1.4-2.6 [facility] Comment on above: Performed By: #### 1 [id number], 6838777, 71194145, 55442467, 7115379 #### [facility] (DEFAULT) [address] [place] [address] Alk Phos 61 IU/L Normal 32-91 [facility] Comment on above: Performed By: #### 1 [id number], 5363778, 55490032, 57956430, 6822578 #### [facility] (DEFAULT) [address] [place] [address] ALT [Catalytic activity/Vol] 19.0 U/L Normal 14.0-54.0 [facility] Comment on above: Performed By: #### 1 [id number], 5674165, 79040486, 88837752, 4279459 #### [facility] (DEFAULT) [address] [place] [address] Anion gap [Moles/Vol] 13.5 mmol/L Normal 5.0-19.0 [facility] Comment on above: Performed By: #### 1 [id number], 3568482, 20723482, 81281647, 0331454 #### [facility] (DEFAULT) [address] [place] [address] AST [Catalytic activity/Vol] 21 U/L Normal 15-41 [facility] Comment on above: Performed By: #### 1 [id number], 7747385, 08659470, 96612175, 8564709 #### [facility] (DEFAULT) [address] [place] [address] Bili Total 1.5 mg/dL High 0.3-1.2 [facility] Comment on above: Performed By: #### 1 [id number], 0958927, 05557822, 84072290, 0275485 #### [facility] (DEFAULT) [address] [place] [address] 59599 Calcium [Mass/Vol] 9.6 mg/dL Normal 8.9-10.3 [facility] Comment on above: Performed By: #### 1 [id number], 5340075, 14844962, 91148572, 5743744 #### [facility] (DEFAULT) [address] [place] [address] 65324 Chloride [Moles/Vol] 98 mmol/L Low 101-111 [facility] Comment on above: Performed By: #### 1 [id number], 3597143, 02520566, 95249034, 6347549 #### [facility] (DEFAULT) [address] [place] [address] CO2 [Moles/Vol] 27 mmol/L Normal 21-32 [facility] Comment on above: Performed By: #### 1 [id number], 2975553, 25242132, 05755953, 7115813 #### [facility] (DEFAULT) [address] [place] [address] 38296 Creatinine [Mass/Vol] 0.81 mg/dL Normal 0.60-1.30 [facility] Comment on above: Performed By: #### 1 [id number], 7438831, 06463275, 38136836, 4694271 #### [facility] (DEFAULT) [address] [place] [address] 27479 Globulin (S) [Mass/Vol] 3.6 g/dL Normal 1.5-4.3 [facility] Comment on above: Performed By: #### 1 [id number], 9537333, 26812487, 54217415, 7379495 #### [facility] (DEFAULT) [address] [place] [address] 95783 Glucose [Mass/Vol] 108.0 mg/dL Normal 74.0-118.0 [facility] Comment on above: Performed By: #### 1 [id number], 5493866, 01218751, 15225794, 7861796 #### [facility] (DEFAULT) [address] [place] [address] 46713 Osmolality 272 mOsm/L Invalid Interpretation Code [facility] Comment on above: Performed By: #### 1 [id number], 9932422, 29980620, 40762478, 3513035 #### [facility] (DEFAULT) [address] [place] [address] 87613 Potassium [Moles/Vol] 3.5 mmol/L Low 3.6-5.1 [facility] Comment on above: Performed By: #### 1 [id number], 4796181, 85317316, 29084739, 4664496 #### [facility] (DEFAULT) [address] [place] [address] Protein [Mass/Vol] 7.9 g/dL Normal 6.5-8.1 [facility] Comment on above: Performed By: #### 1 [id number], 3842940, 66836784, 78978976, 0666506 #### [facility] (DEFAULT) [address] [place] [address] 82889 Sodium [Moles/Vol] 135.0 mmol/L Low 136.0-144.0 [facility] Comment on above: Performed By: #### 1 410347042, 0000896, 99153602, 52837314, 7583658 #### [facility] (DEFAULT) [address] [place] [address] 94717 Urea nitrogen [Mass/Vol] 16 mg/dL Normal 8-26 [facility] Comment on above: Performed By: #### 1 [id number], 3368911, 05596170, 03552510, 0323802 #### [facility] (DEFAULT) [address] [place] [address] 17781 Urea nitrogen/Creatinin e [Mass ratio] 19.7 mg/mg High 4.6-16.2 [facility] Comment on above: Performed By: #### 1 196590324, 0588603, 71621946, 45059522, 9505433 #### [facility] (DEFAULT) [address] [place] [address] Patient Handouton 04-17-2024 Patient Handout [id number] 2#[id number] [facility] T4, Totalon 04-17-2024 T4 [Mass/Vol] 9.29 ug/dL Normal 6.09-12.23 [facility] Comment on above: Performed By: #### 1 [id number], 6096260, 09407428, 29224964, 2680761 #### [facility] (DEFAULT) [address] [place] [address] TSHon 04-17-2024 TSH Qn 0.68 m[IU]/L Normal 0.45-5.33 [facility] Comment on above: Performed By: #### 1 [id number], 5764524, 54364127, 07923430, 8457388 #### [facility] (DEFAULT) [address] [place] [address] UA Lajab3xb 04-17-2024 UA Bacteria Rare Normal [facility] Comment on above: Order Comment: Urina lysis Microscopic order added on by [employer] Expert Rules system. Performed By: #### 2 [id number], [id number] #### [facility] (DEFAULT) [address] [place] [address] 35902 UA Mucous 3+ [facility] Comment on above: Order Comment: Urina lysis Microscopic order added on by [employer] Rules system. Performed By: #### 2 [id number], 10976544 #### [facility] (DEFAULT) [address] [place] [address] UA RBC 3-5 Normal [facility] Comment on above: Order Comment: Urina lysis Microscopic order added on by [employer] Rules system. Performed By: #### 2 [id number], 90482554 #### [facility] (DEFAULT) [address] [place] [address] 17802 UA Squam Epi None Seen [facility] Comment on above: Order Comment: Urina lysis Microscopic order added on by [employer] Rules system. Performed By: #### 2 [id number], [id number] #### [facility] (DEFAULT) [address] [place] [address] 24580 UA WBC 0-2 [facility] Comment on above: Order Comment: Urina lysis Microscopic order added on by [employer] Rules system. Performed By: #### 2 [id number], 25119895 #### [facility] (DEFAULT) [address] [place] [address] 81140 UA w Micro, if Ind Standardo n 04-17-2024 Breakpoint UA Normal [facility] Comment on above: Performed By: #### 2 [id number], [id number] #### [facility] (DEFAULT) [address] [place] [address] Color (U) Yellow Normal [facility] Comment on above: Performed By: #### 2 [id number], 15496941 #### [facility] (DEFAULT) [address] [place] [address] 40665 Glucose (U) [Mass/Vol] Negative [facility] Comment on above: Performed By: #### 2 [id number], 52438860 #### [facility] (DEFAULT) [address] [place] [address] 04679 Ketones Ql (U) Negative [facility] Comment on above: Performed By: #### 2 [id number], 57192600 #### [facility] (DEFAULT) [address] [place] [address] 05404 Micro? Indicated Invalid Interpretation Code [facility] Comment on above: Result Comment: Resu lt created by rule GL_MAGR_ADD_UA_MICRO Performed By: #### 2 [id number], [id number] #### [facility] (DEFAULT) [address] [place] [address] 03591 UA Bilirubin Negative Normal [facility] Comment on above: Performed By: #### 2 [id number], 13014735 #### [facility] (DEFAULT) [address] [place] [address] 92845 UA Blood MODERATE Abnormal NEGATIVE [facility] Comment on above: Performed By: #### 2 [id number], [id number] #### [facility] (DEFAULT) [address] [place] [address] 73002 UA Clarity CLEAR Normal CLEAR [facility] Comment on above: Performed By: #### 2 [id number], [id number] #### [facility] (DEFAULT) [address] [place] [address] 37928 UA Leuk Est Negative Normal NEGATIVE [facility] Comment on above: Performed By: #### 2 [id number], 38303756 #### [facility] (DEFAULT) [address] [place] [address] 70936 UA Nitrite Negative Normal NEGATIVE [facility] Comment on above: Performed By: #### 2 [id number], 00740075 #### [facility] (DEFAULT) [address] [place] [address] UA pH 6.0 Normal 5-8 [facility] Comment on above: Performed By: #### 2 [id number], [id number] #### [facility] (DEFAULT) [address] [place] [address] UA Protein Negative Normal NEGATIVE [facility] Comment on above: Performed By: #### 2 [id number], 97433728 #### [facility] (DEFAULT) [address] [place] [address] UA Spec Grav 1.010 Normal 1.001-1.035 [facility] Comment on above: Performed By: #### 2 [id number], 54460310 #### [facility] (DEFAULT) [address] [place] [address] UA Urobilinogen 0.2 mg/dL Normal 0.2-1.0 [facility] Comment on above: Performed By: #### 2 [id number], 15051324 #### [facility] (DEFAULT) [address] [place] [address] Urine Source Clean Catch Normal [facility] Comment on above: Performed By: #### 2 [id number], [id number] #### [facility] (DEFAULT) [address] [place] [address] 86250 CBC AUTO DIFFon 04-02-2022 BASO # 0.0 103/ul Normal 0.0-0.1 [facility] Comment on above: Performed By: #### C BC #### [facility] [address] [address] [address] Eva Arevalo Basophils/100 WBC (Bld) 0.4 % Normal 0.2-2.0 [facility] Comment on above: Performed By: #### C BC #### [facility] [address] [place] [address] Dr. Eva Arevalo EO # 0.1 103/ul Normal 0.0-0.7 [facility] Comment on above: Performed By: #### C BC #### [facility] [address] [place] [address] Dr. Eva Arevalo Eosinophils/100 WBC (Bld) 1.4 % Normal 0.9-7.0 [facility] Comment on above: Performed By: #### C BC #### [facility] [address] [place] [address] Dr. Eva Arevalo Erythrocyte distribution width (RBC) [Ratio] 12.5 % Normal 11.0-15.0 [facility] Comment on above: Performed By: #### C BC #### [facility] [address] [place] [address] Dr. Eva Arevalo Hematocrit (Bld) [Volume fraction] 47.6 % Normal 36.0-48.0 [facility] Comment on above: Performed By: #### C BC #### [facility] [address] [place] [address] Dr. Eva Arevalo Hemoglobin (Bld) [Mass/Vol] 14.4 g/dL Normal 12.0-16.0 [facility] Comment on above: Performed By: #### C BC #### [facility] [address] [place] [address] Dr. Eva Arevalo IG # 0.04 10e3/ul Critically high 0.00-0.03 [facility] Comment on above: Performed By: #### C BC #### [facility] [address] [place] [address] Dr. Eva Arevalo IG % 0.5 % Normal 0.0-0.5 [facility] Comment on above: Performed By: #### C BC #### [facility] [address] [place] [address] Dr. Eva Arevalo LYMPH # 2.2 103/ul Normal 1.2-3.8 [facility] Comment on above: Performed By: #### C BC #### [facility] [address] [place] [address] Dr. Eva Arevalo Lymphocytes/100 WBC (Bld) 28.2 % Normal 20.5-60.0 [facility] Comment on above: Performed By: #### C BC #### [facility] [address] [place] [address] Dr. Eva Arevalo MANUAL DIFF REQ NO Normal [facility] Comment on above: Performed By: #### C BC #### [facility] [address] [place] [address] Dr. Eva Arevalo MCH (RBC) [Entitic mass] 29.9 pg Normal 26.7-34.0 [facility] Comment on above: Performed By: #### C BC #### [facility] [address] [place] [address] Dr. Eva Arevalo MCHC (RBC) [Mass/Vol] 30.3 g/dL Normal 29.9-35.2 [facility] Comment on above: Performed By: #### C BC #### [facility] [address] [place] [address] Dr. Eva Arevalo MCV (RBC) [Entitic vol] 99.0 fL Normal 81.0-99.0 [facility] Comment on above: Performed By: #### C BC #### [facility] [address] [place] [address] Dr. Eva Arevalo MONO # 0.5 103/ul Normal 0.3-0.8 [facility] Comment on above: Performed By: #### C BC #### [facility] [address] [place] [address] Dr. Eva Arevalo Monocytes/100 WBC (Bld) 6.1 % Normal 1.7-12.0 [facility] Comment on above: Performed By: #### C BC #### [facility] [address] [place] [address] Dr. Eva Arevalo NEUT # 5.0 103/ul Normal 1.4-6.5 [facility] Comment on above: Performed By: #### C BC #### [facility] [address] [place] [address] Dr. Eva Arevalo Neutrophils/100 WBC (Bld) 63.4 % Normal 43.0-75.0 [facility] Comment on above: Performed By: #### C BC #### [facility] [address] [place] [address] Dr. Eva Arevalo Platelet mean volume (Bld) [Entitic vol] 9.2 fL Critically low 9.5-13.5 [facility] Comment on above: Performed By: #### C BC #### [facility] [address] [place] [address] Dr. Eva Arevalo PLT 253 103/ul Normal 150-450 [facility] Comment on above: Performed By: #### C BC #### [facility] [address] [place] [address] Dr. Eva Arevalo RBC 4.81 106/ul Normal 4.20-5.40 [facility] Comment on above: Performed By: #### C BC #### [facility] [address] [place] [address] Dr. Eva Arevalo WBC 7.9 103/ul Normal 4.0-11.0 [facility] Comment on above: Performed By: #### C BC #### [facility] [address] [place] [address] Dr. Eva Arevalo PROF 14(COMP METB)on 023 Albumin [Mass/Vol] 3.7 g/dL Normal 3.4-5.0 [facility] Comment on above: Performed By: #### T 4, TSH, CMP #### [facility] [address] [place] [address] Dr. Eva Arevalo Albumin/Globulin [Mass ratio] 1.0 {ratio} Normal [facility] Comment on above: Performed By: #### T 4, TSH, CMP #### [facility] [address] [place] [address] Dr. Eva Arevalo ALP [Catalytic activity/Vol] 75 U/L Normal 46-116 [facility] Comment on above: Performed By: #### T 4, TSH, CMP #### [facility] [address] [address] [address] Eva Arevalo ALT [Catalytic activity/Vol] 21 U/L Normal 14-59 [facility] Comment on above: Performed By: #### T 4, TSH, CMP #### [facility] [address] [address] [address] Eva Arevalo Anion gap [Moles/Vol] 11.8 mmol/L Normal [facility] Comment on above: Performed By: #### T 4, TSH, CMP #### [facility] [address] [address] [address] Eva Arevalo AST [Catalytic activity/Vol] 14 U/L Critically low 15-37 [facility] Comment on above: Performed By: #### T 4, TSH, CMP #### [facility] [address] [place] [address] Dr. Eva Arevalo Bilirubin [Mass/Vol] 0.6 mg/dL Normal 0.2-1.0 [facility] Comment on above: Performed By: #### T 4, TSH, CMP #### [facility] [address] [address] [address] Eva Arevalo Calcium [Mass/Vol] 9.8 mg/dL Normal 8.5-10.1 [facility] Comment on above: Performed By: #### T 4, TSH, CMP #### [facility] [address] [address] [address] Eva Arevalo Chloride [Moles/Vol] 103 mmol/L Normal 98-107 [facility] Comment on above: Performed By: #### T 4, TSH, CMP #### [facility] [address] [address] [address] Eva Arevalo CO2 [Moles/Vol] 30.5 mmol/L Normal 21.0-32.0 [facility] Comment on above: Performed By: #### T 4, TSH, CMP #### [facility] [address] [address] [address] Eva Arevalo Creatinine [Mass/Vol] 0.78 mg/dL Normal 0.55-1.02 [facility] Comment on above: Performed By: #### T 4, TSH, CMP #### [facility] [address] [place] [address] Dr. Eva Arevalo EGFR-AF MICRONESIAN >60 Normal >=60 [facility] Comment on above: Performed By: #### T 4, TSH, CMP #### [facility] [address] [address] [address] Eva Arevalo EGFR-NON AF MICRONESIAN >60 Normal >=60 [facility] Comment on above: Performed By: #### T 4, TSH, CMP #### [facility] [address] [address] [address] Eva Arevalo Globulin (S) [Mass/Vol] 3.8 g/dL Normal [facility] Comment on above: Performed By: #### T 4, TSH, CMP #### [facility] [address] [place] [address] Dr. Eva Arevalo Glucose [Mass/Vol] 94 mg/dL Normal 74-106 [facility] Comment on above: Performed By: #### T 4, TSH, CMP #### [facility] [address] [address] [address] Eva Arevalo Potassium [Moles/Vol] 4.3 mmol/L Normal 3.5-5.1 [facility] Comment on above: Performed By: #### T 4, TSH, CMP #### [facility] [address] [place] [address] Dr. Eva Arevalo Protein [Mass/Vol] 7.5 g/dL Normal 6.4-8.2 [facility] Comment on above: Performed By: #### T 4, TSH, CMP #### [facility] [address] [place] [address] Dr. Eva Arevalo Sodium [Moles/Vol] 141 mmol/L Normal 136-145 [facility] Comment on above: Performed By: #### T 4, TSH, CMP #### [facility] [address] [place] [address] Dr. Eva Arevalo Urea nitrogen [Mass/Vol] 25.0 mg/dL Critically high 7.0-18.0 [facility] Comment on above: Performed By: #### T 4, TSH, CMP #### [facility] [address] [address] [address] Eva Arevalo Urea nitrogen/Creatinin e [Mass ratio] 32.1 mg/mg Normal [facility] Comment on above: Performed By: #### T 4, TSH, CMP #### [facility] [address] [address] [address] Eva Arevalo T4on 04-02-2022 T4 [Mass/Vol] 7.60 ug/dL Normal 4.80-13.90 [facility] Comment on above: Performed By: #### T 4, TSH, CMP #### [facility] [address] [address] [address] Eva Arevalo TSHon 04-02-2022 TSH 0.825 uIU/mL Normal 0.358-3.740 [facility] Comment on above: Performed By: #### T 4, TSH, CMP #### [facility] [address] [address] [address] Eva Arevalo Encounters Encounter Date Encounter Type Care Provider Facility Start: 04-26-2024 ambulatory HUYEN OATES Facilit y:[facility] Start: 04-17-2024 ambulatory HUYEN OATES Facilit y:[facility] Start: 04-17-2024 ambulatory HUYEN OATES Facilit y:[facility] Start: 07-05-2023 ambulatory Kulwinder Curiel acility:[facility] Start: 04-02-2022 End: 04-03-[address] HUYEN OATES Facility:[facility] Payers Date Payer Category Payer Unknown [id number] [id number] [id number] 1965 Unknown [id number] [id number] 1965 Unknown [id number] [id number] 1965 Unknown [id number] [id number] [id number] 1960 Self-pay Clinical Note 04-17-2024 Note Date & Type Note Facility 04-17-2024 Note [facility] Clinical Discharge Summary PERSON INFORMATION Name MARYANN DORADO Age 58 Years 1965 Sex FEMALE Language Zambian PCP HUYEN OATES DO Marital Status Med Service MRN [id number] Acct# Arrival 04/17/2024 08:56:29 Visit Reason Acuity LOS 000 00:39 Address: [address] [place] [id number] Comment: PROVIDER INFORMATION VITALS INFORMATION Vital Sign Triage Latest Temp Oral Temp Temporal Temp Intravascular Temp Axillary Temp Rectal 02 Sat 100 % 100 % Respiratory Rate Peripheral Pulse Rate Apical Heart Rate Blood Pressure / 86 mmHg / 86 mmHg Comment: MEDICAL INFORMATION Allergy Info: penicillin Prescriptions Given: hydrochlorothiazide-valsartan (hydrochlorothiazide-valsartan 25 mg-320 mg oral tablet) 1 tab(s) Oral (given by mouth) every day. Refills: 5. Medication List: Medications to Continue That Have Not Changed [facility] [address] [id number], [phone] hydrochlorothiazide-valsartan (hydrochlorothiazide-valsartan 25 mg-320 mg oral tablet) 1 tab(s) Oral (given by mouth) every day. Refills: 5. Medications to Continue That Have Not Changed [facility] [id number] [id number], [phone] hydrochlorothiazide-valsartan (hydrochlorothiazide-valsartan 25 mg-320 mg oral tablet) 1 tab(s) Oral (given by mouth) every day. Refills: 5. Medications to Continue That Have Not Changed [facility] [id number] [address] [id number], [phone] hydrochlorothiazide-valsartan (hydrochlorothiazide-valsartan 25 mg-320 mg oral tablet) 1 tab(s) Oral (given by mouth) every day. Refills: 5. Comment: Lab and Radiology Results Laboratory or Other Results This Visit (last charted value for your 04/17/2024 visit) No Laboratory or Other Results This Visit DIET & ACTIVITY Patient Activity Level: Patient Diet: Patient Activity Restrictions: DISCHARGE INFORMATION Discharge Disposition: Discharge Location: DEPART REASON INCOMPLETE INFORMATION PATIENT EDUCATION INFORMATION Instructions: Follow up: DIAGNOSIS 1:Hypertension; 2:Nausea Comment: PHYS DOC NOTES [facility] Summary Purpose Family History No Family History Records FoundNo Family History Records FoundNo Family History Records Found Advance Directives No Advanced Directives Records FoundNo Advanced Directives Records FoundNo Advanced Directives Records Found Additional Source Comments INFORMATION SOURCE (unrecogn ized section and content) DATE CREATED AUTHOR 06/12/2022 [facility] DATE CREATED AUTHOR AUTHOR'S ORGANIZ ATION 07/28/2023 [facility] DATE CREATED AUTHOR AUTHOR'S ORGANIZ ATION 05/03/2024 [facility] FOR RECORDS PERTAINING TO PATIENTS WHO ARE OR HAVE BEEN ENROLLED IN A CHEMICAL DEPENDENCY/SUBSTANCEABUSE PROGRAM, SOME INFORMATION MAY BE OMITTED. This clinical summary was aggregated from multiple sources. Caution should be exercised in using it in the provision of clinical care. This summary normalizes information from multiple sources, and as a consequence, information in this document may materially change the coding, format and clinical context of patient data. In addition, data may be omitted in some cases. CLINICAL DECISIONS SHOULD BE BASED ON THE PRIMARY CLINICAL RECORDS. [email or web address] provides no warranty or guarantee of the accuracy or completeness of information in this document.
--- NOTE | 2024-05-17 03:33 | PC.NURSE ---
this patient complains of fever, chills, body aches, nasal drainage, and congestion onset 05/14/2024 and using OTC but not working
[2024-05-17 03:47] LABS: Influenza Virus A Antigen Negative; Influenza Virus B Antigen Negative; Internal Control Within Normal Limits; SARS-CoV-2 Ag NEGATIVE (NEGATIVE)
[2024-05-17 03:48] LABS: Internal Control Within Normal Limits; Strep A Antigen Screen Negative
--- NOTE | 2024-05-17 03:51 | ED_ITS ---
HPI HPI - General Adult General Chief complaint: Fever Stated complaint: SORE THROAT, FEVER Time Seen by Provider: 05/17/24 03:37 Mode of arrival: walk-in Limitations: no limitations History of Present Illness HPI narrative: The patient is a 58-year-old female presenting to the emergency department with fever, sore throat, sinus pain and congestion. She also has a productive cough with yellow phlegm. Patient states that her symptoms started 3 to 4 days ago when she had a fever when it started. She states that the fever resolved on the first day. There has been no nausea or vomiting. No diarrhea or constipation no myalgias. Patient's been taking [id number] cough and cold preparations but they are not helping her. She actually thought she was getting better yesterday but then got worse. Patient is concerned because she works at [employer] and she does not want to expose her coworkers or patrons to anything. Patient denies any known sick contacts or recent travel. She did not get the COVID vaccination since 2019 because they injured her arm in the process. She did not receive the influenza vaccine this year. Related Data Previous Rx's ?Medication ?Instructions ?Recorded valsartan 320 1 tab PO DAILY #30 tabs 07/04/23 mg-hydrochlorothiazide 25 mg tablet benzonatate 200 mg capsule 200 mg PO TID PRN cough #14 caps 05/17/24 methylprednisolone 4 mg tablets in 4 mg PO DAILY #21 ea 05/17/24 a dose pack (Medrol (Alexy)) Allergies Allergy/AdvReac Type Severity Reaction Status Date / Time Penicillins Allergy Mild Rash Verified 05/17/24 03:11 Opioid HPI Opioid Management Most Recent Opioid Data: Last Pain Scale 8 05/17/24 03:30 05/17/24 Ur Phencyclidine Scrn Negative (NEGATIVE) 07/04/23 12:55 06/06 11/28 Review of Systems ROS Narrative 10 Systems were reviewed, and unless not ed in the HPI, all other systems are reviewed, unremarkable, or noncontributory. PFSH PFS Social History Little interest or pleasure in doing things: not at all Feeling down, depressed, or hopeless: not at all Exam Narrative Exam Narrative: Prior to examining the patient, I have washed with hospital approved and provided Antiseptic Hand Associate Financial [employer]anner and have also applied gloves.? Prior to touching the patient, I asked for consent to examine the patient.? General: Alert and oriented, well nourished, mild distress. Eye: PERRL, EOMI, normal conjunctiva. HENT: Normocephalic, normal hearing, moist oral mucosa, no scleral icterus, no sinus tenderness. Tympanic membranes are not red, dull, bulging. Patient did have a little bit of dried blood to the anterior tragus area. It was about 1 mm in drop size. There was no evidence of tympanic membrane perforation. No nasal turbinate edema. No posterior oropharyngeal erythema, edema or exudate. Patient does have cobblestoning in the posterior pharynx. Patient also has a hoarse voice. Neck: Supple, non-tender, no carotid bruits, no JVD, no lymphadenopathy. Lungs: Clear to auscultation and percussion, non-labored respiration. No rhonchi, rales, wheezing. Heart: Normal rate, regular rhythm, no murmur, gallop or edema. Abdomen: Soft, non-tender, non-distended, normal bowel sounds, no masses. Musculoskeletal: Normal range of motion and strength, no tenderness or swelling. Skin: Skin is warm, dry and pink, no rashes or lesions. Neurologic: Awake, alert, and oriented X3, CN II-XII intact. Psychiatric: Cooperative, appropriate mood and affect.? Following the conclusion of the examination, I have washed my hands thoroughly after removing examination gloves. Constitutional Vital Signs, click to edit/add: Last Vital Signs Temp 98.4 F 05/17/24 03:12 Pulse 89 05/17/24 03:12 Resp 18 05/17/24 03:12 BP 154/90 H 05/17/24 03:12 Pulse Ox 99 05/17/24 03:12 O2 Del Method Room Air 05/17/24 03:12 Course Course Hospital Course: Patient is a 58-year-old female presenting to the emergency department with a sore throat, headache, cough, and sinus congestion. Patient permitted COVID, influenza swabs but did not want a chest x-ray. Patient also declined any medications here as she wants to keep cost down. Patient was found to have negative viral swabs. Patient was told by me that she still has some sort of virus and is infectious to others. There is somewhat of knowledge deficit with this as the patient feels like she is going to be safe to go back to work. She does indicate that she will not work today and requests a work note. Reevaluation(s) Reevaluation #1: Disclose the results of the testing to the patient and answered all questions to her satisfaction. Time: 04:28 Vital Signs Vital signs: Vital Signs Temperature 98.4 F 05/17/24 03:12 Pulse Rate 89 05/17/24 03:12 Respiratory Rate 18 05/17/24 03:12 Blood Pressure 154/90 H 05/17/24 03:12 Pulse Oximetry 99 05/17/24 03:12 Oxygen Delivery Method Room Air 05/17/24 03:12 Temperature 98.4 F 05/17/24 03:12 Pulse Rate 89 05/17/24 03:12 Respiratory Rate 18 05/17/24 03:12 Blood Pressure 154/90 H 05/17/24 03:12 Pulse Oximetry 99 05/17/24 03:12 Oxygen Delivery Method Room Air 05/17/24 03:12 Medical Decision Making [facility] Narrative Medical decision making narrative: 58-year-old female presents to the emergency department with sore throat, headache, cough, and congestion. Differential Diagnosis Differential Diagnosis: Strep pharyngitis, viral pharyngitis, COVID, influenza, upper respiratory i Medical Records Medical records reviewed: Yes I reviewed the patient's medical records Lab Data Lab results reviewed: Yes I reviewed the patient's lab results Labs: Lab Results 05/17/24 Range/Units 03:19 Influenza Type A Ag Negative Influenza Type B Ag Negative SARS-CoV-2 Ag (CV2AG) Negative (NEGATIVE) Streptococcus Screen Negative Discharge Plan Discharge Chief Complaint: Fever Clinical Impression: URI (upper respiratory infection) Patient Disposition: Home, Self-Care Time of Disposition Decision: 04:30 Mode of Transportation: Private Vehicle Prescriptions / Home Meds: New methylprednisolone [Medrol (Alexy)] 4 mg tablets,dose pack 4 mg PO DAILY Qty: 21 0RF benzonatate 200 mg capsule 200 mg PO TID PRN (Reason: cough) Qty: 14 0RF No Action valsartan-hydrochlorothiazide 320-25 mg tablet 1 tab PO DAILY Qty: 30 0RF Print Language: Belarusian Instructions: Acute Bronchitis (ED) Referrals: JEREMY PAYNE [Primary Care Provider] - 1 week
--- NOTE | 2024-05-17 04:38 | PC.NURSE ---
i gave this patient verbal and written discharge orders along with 2 e-scripts and 1 work note and this patient voices yes to understanding these. at time of discharge this patient voices no concerns and shows no signs of distress
== END 2024-05-17 04:39 | disposition home or self-care (01) ==
PROVIDERS: Emergency Provider Emergency Medicine; PCP Nurse Practitioner Family
DX: J06.9 Acute upper respiratory infection, unspecified (principal)
CPT/HCPCS: 87070; 87804; 87811; 87880; 99285